=== PATIENT | male | born 2000 | race Hispanic/Latino ===

== ENCOUNTER 2023-11-01 10:49 | Emergency (ER) | payer SELFPAY ==
[~2023-11-01] VITALS: Ht 172.7 cm; Wt 90.7 kg
[2023-11-01 10:50] VITALS: BP 131/71; PULSE 96; RESP 16
[2023-11-01] MEDS: OCTYL 2-CYANOACRYLATE 1 EACH TP SCH (13:42)
[2023-11-01] MEDS: OCTYL 2-CYANOACRYLATE 1 EACH TP ONE (13:42)
== END 2023-11-01 13:44 | disposition home or self-care (01) ==
LOC: EDH 10:49 → EEVIPCON 10:49 → EDH 13:44
DX: S01.311A Laceration without foreign body of right ear, initial encounter (principal); X58.XXXA Exposure to other specified factors, initial encounter; Y93.89 Activity, other specified; Y92.89 Other specified places as the place of occurrence of the external cause; Y99.8 Other external cause status
CPT/HCPCS: 70250